=== PATIENT | male | born 1970 | race Caucasian/White ===

== ENCOUNTER 2017-01-24 23:22 | Emergency (ER) | payer OTHER ==
[~2017-01-24] VITALS: Ht 172.7 cm; Wt 92.6 kg
[~2017-01-24 23:22] MED LIST: ASPIR 8181 M1 PO; MOTRIN800 MG PO; ONE DAILY TABL1 EAC1 PO; RANITIDINE HCL150 MG PO
[2017-01-25] MEDS ORDERED: BACTRIM,SEPT1 TABLET PO (01:51)
[2017-01-25] MEDS ORDERED: BACTROBAN OINTM22 GM TP (01:51)
[2017-01-25] MEDS ORDERED: KEFLEX500 MG PO (01:51)
[2017-01-25 01:57] LABS: HEMATOCRIT 44.5 % (38.0-50.0); MCH 29.5 PG (29.0-34.0); MCHC 34.2 G/DL (30.0-36.0); MCV 86.2 FL (86-99); MEAN PLAT.VOLUME 9.5 uM^3 (9.0-12.4); PLATELET COUNT 201 K/uL (156-360); RBC DIS.WIDTH-CV 12.5 % (11.8-14.6); RBC DIS.WIDTH-SD 39.6 % (39-53); RED BLOOD COUNT 5.16 M/uL (4.00-5.50); WHITE BLOOD COUNT 6.9 K/uL (4.1-10.2)
[2017-01-25 02:09] LABS: CHLORIDE 106 mEq/L (99-109); POTASSIUM 3.6 mEq/L (3.7-5.4); SODIUM 138 mEq/L (136-147)
[2017-01-25 02:10] LABS: GLUCOSE 105 mg/dL (70-99)
[2017-01-25 02:12] LABS: ANION GAP 9 MEQ/L (2-14)
[2017-01-25 02:14] LABS: GFR ESTIMATE (CALCULATED) > 59 mL/min/
[2017-01-25 02:15] LABS: UREA NITROGEN (BUN) 24 mg/dL (9-23)
[2017-01-25 02:24] VITALS: BP 122/85
== END 2017-01-25 02:25 | disposition home or self-care (01) ==
LOC: EME 23:22 → EXP 23:22
PROVIDERS: Physician Assistant
DX: L03.211 Cellulitis of face (principal); Z79.82 Long term (current) use of aspirin
CPT/HCPCS: 80048; 83605; 85027; 87040; 99281; 99284; J0696; J1885; J7050